=== PATIENT | female | born 1990 | race Caucasian/White ===

== ENCOUNTER 2017-12-20 13:29 | Emergency (ER) | payer BC ==
[~2017-12-20] VITALS: Ht 170.2 cm; Wt 61.9 kg
[2017-12-20] MEDS ORDERED: INDERAL 10MG10 MG PO (13:54)
[2017-12-20] MEDS ORDERED: IBU600 MG PO (13:55)
[2017-12-20 14:35] LABS: BASO # 0.1 (0.02-0.10); EOS # 0.2 (0.04-0.40); EOS % 2.2 % (1.0-5.0); HEMATOCRIT 38.7 % (37.0-47.0); HEMOGLOBIN 12.6 g/dL (12.5-16.0); LYMPH# 2.4 (1.50-4.00); MEAN CELL VOLUME 84 fl (78-100); MEAN CORPUSCULAR HEMOGLOBIN 27 pg (27-31); MEAN CORPUSCULAR HGB CONC 33 g/dL (33-37); MEAN PLATELET VOLUME 9.7 fl (7.4-10.4); MONO # 0.7 (0.20-0.80); NEU # 5.7 (1.40-6.50); PLATELET COUNT 318 K/mm3 (130-400); RED BLOOD COUNT 4.63 M/mm3 (4.10-5.30); RED CELL DISTRIBUTION WIDTH 14.5 % (11.5-14.5); WHITE BLOOD COUNT 9.1 K/mm3 (4.8-10.8)
[2017-12-20 14:56] LABS: ALBUMIN 3.9 g/dL (3.5-5.0); BUN/CREATININE RATIO 17.6 (6.0-26.0); CALCIUM 8.8 mg/dL (8.4-10.2); POTASSIUM 4.4 mmol/L (3.6-5.0); TOTAL BILIRUBIN 0.4 mg/dL (0.2-1.3); TOTAL PROTEIN 7.9 g/dL (6.3-8.2)
[2017-12-20] MEDS ORDERED: SKELAXIN 800MG800 MG PO (15:40)
[2017-12-20] MEDS ORDERED: KETOROLAC10 MG PO (15:40)
[2017-12-20] MEDS ORDERED: NORCO 325 MG-51 TA1 PO (15:40)
[2017-12-20 16:15] VITALS: BP 114/67
== END 2017-12-20 16:15 | disposition home or self-care (01) ==
LOC: ED 13:29
PROVIDERS: Physician Assistant
DX: S29.012A Strain of muscle and tendon of back wall of thorax, initial encounter (principal); M62.830 Muscle spasm of back; Z79.899 Other long term (current) drug therapy

== ENCOUNTER 2020-07-12 23:40 | Emergency (ER) | payer BC ==
[~2020-07-12 23:40] MED LIST: IBU600 MG PO; INDERAL 10MG10 MG PO; KETOROLAC10 MG PO; NORCO 325 MG-51 TA1 PO; SKELAXIN 800MG800 MG PO
[2020-07-13 01:45] VITALS: BP 126/76
[2020-07-13 14:27] LABS: URINE WBC 0 /hpf (0-3)
[2020-07-13 14:28] LABS: PH-URINE 7.5 (5.0 - 8.0); URINE APPEARANCE CLEAR; URINE BILIRUBIN NEGATIVE (NEGATIVE); URINE BLOOD NEGATIVE (NEGATIVE); URINE COLOR YELLOW; URINE GLUCOSE NEGATIVE (NEGATIVE); URINE KETONE NEGATIVE (NEGATIVE); URINE LEUKOCYTE ESTERASE NEGATIVE (NEGATIVE); URINE NITRATE NEGATIVE (NEGATIVE); URINE PROTEIN(semi-quant) NEGATIVE (NEGATIVE); URINE UROBILINOGEN NORMAL (NORMAL)
[2020-07-13 14:29] LABS: HEMATOCRIT 44.7 % (37.0-47.0); HEMOGLOBIN 15.1 g/dL (12.5-16.0); MEAN CELL VOLUME 93 fl (78-100); MEAN CORPUSCULAR HEMOGLOBIN 32 pg (27-31); MEAN CORPUSCULAR HGB CONC 34 g/dL (33-37); MEAN PLATELET VOLUME 9.7 fl (7.4-10.4); PLATELET COUNT 264 K/mm3 (130-400); RED CELL DISTRIBUTION WIDTH 12.2 % (11.5-14.5); WHITE BLOOD COUNT 8.4 K/mm3 (4.8-10.8)
[2020-07-13 14:30] LABS: EOS # 0.1 (0.04-0.40); EOS % 1.4 % (1.0-5.0); ERYTHROCYTE SEDIMENTATION RATE 6 mm/hr (0-20); LYMPH# 1.8 (1.50-4.00); MONO # 0.7 (0.20-0.80); NEU # 5.8 (1.40-6.50)
[2020-07-13 14:31] LABS: POTASSIUM 4.1 mmol/L (3.5-5.1)
[2020-07-13 14:32] LABS: ALBUMIN 4.3 g/dL (3.5-5.0); CALCIUM 8.9 mg/dL (8.3-10.5); TOTAL BILIRUBIN 0.2 mg/dL (0.2-1.2); TOTAL PROTEIN 7.7 g/dL (6.4-8.3)
== END 2020-07-13 03:00 | disposition short-term general hospital (02) ==
LOC: ED 07-13 00:18
PROVIDERS: Internal Medicine
DX: R19.09 Other intra-abdominal and pelvic swelling, mass and lump (principal); Z90.710 Acquired absence of both cervix and uterus; Z20.822 Contact with and (suspected) exposure to COVID-19; Z88.2 Allergy status to sulfonamides
CPT/HCPCS: J2270; J2405; J2550; J7030; Q9967